=== PATIENT | male | born 1995 | race Caucasian/White ===

== ENCOUNTER → 2022-11-23 | Outpatient (CLI) | payer OTHER | LOC: M PLAIMG 14:22 | PROVIDERS: ATTEND Physician Assistant | DX: M25.531 Pain in right wrist (principal); S52.021K Displaced fracture of olecranon process without intraarticular extension of right ulna, subsequent encounter for closed fracture with nonunion ==

== ENCOUNTER 2023-08-28 06:17 | Day surgery (SDC) | payer OTHER ==
[~2023-08-28] VITALS: Ht 195.6 cm; Wt 129.3 kg
[~2023-08-28 06:17] MED LIST: ACET325C5 PO; CELE1CAP4 PO; NEUR300C PO; TIZA10TA; VITA100093 PO
[2023-08-28] MEDS ORDERED: LR 1,000 ML IV SCH ×2 (06:45→08:35)
[2023-08-28] MEDS ORDERED: ceFAZolin SOD 1 GM in D5W MINI-BAG PLUS 50 ML IV ONE (07:05)
[2023-08-28] MEDS ORDERED: ceFAZolin SOD 2 GM in IV 1 EA IV ONE (07:05)
[2023-08-28] MEDS ORDERED: fentaNYL 100 MCG/2 ML INJECTION As Ordered ONE ×2 (07:09→07:57)
[2023-08-28] MEDS ORDERED: LIDOCAINE 2% 100MG/5ML SDV (FOR ANES.) As Ordered ONE (07:09)
[2023-08-28] MEDS ORDERED: MIDAZOLAM INJ 2MG/2ML VIAL As Ordered ONE (07:09)
[2023-08-28] MEDS ORDERED: propofoL 200 MG/20 ML VIAL As Ordered ONE (07:09)
[2023-08-28] MEDS ORDERED: ONDANSETRON 4MG 2ML VIAL As Ordered ONE (07:09)
[2023-08-28] MEDS ORDERED: KETOROLAC 60MG 2ML VIAL As Ordered ONE (07:09)
[2023-08-28] MEDS ORDERED: LIDOCAINE W/EPINEPHRINE 1% 20ML VIAL As Ordered ONE (07:17)
[2023-08-28] MEDS ORDERED: GLYCOPYRROLATE INJ 0.2 MG/ML 2 ML VIAL As Ordered ONE (07:28)
[2023-08-28] MEDS ORDERED: ATROPINE SULF 0.4 MG/ML 1ML VIAL As Ordered ONE (07:32)
[2023-08-28] MEDS ORDERED: MEPERIDINE 50 MG/ML 1ML VIAL As Ordered ONE (08:30)
[2023-08-28] MEDS ORDERED: fentaNYL 100 MCG/2 ML INJECTION IV PRN (08:35)
[2023-08-28] MEDS ORDERED: HYDROMORPHONE HCL 0.5 MG/ 0.5 ML SYRINGE IV PRN (08:35)
[2023-08-28] MEDS ORDERED: ONDANSETRON 4MG 2ML VIAL IV PRN (08:35)
[2023-08-28] MEDS ORDERED: oxyCODONE 5MG TAB PO PRN (08:35)
[2023-08-28] MEDS ORDERED: PERC5TAB12 PO (08:40)
[2023-08-28] MEDS ORDERED: diphenhydrAMINE 50MG/ML VIAL IV ONE (09:35)
[2023-08-28 10:15] VITALS: BP 129/60; TEMP 97.9; O2SAT 96
== END 2023-08-28 10:27 | disposition home or self-care (01) ==
LOC: M SDC 06:17
PROVIDERS: ATTEND Orthopaedic Surgery Hand Surgery
DX: G56.21 Lesion of ulnar nerve, right upper limb (principal); Z79.899 Other long term (current) drug therapy
CPT/HCPCS: 29999; J0461; J0690; J1100; J1200; J1885; J2175; J2250; J2405; J3010

== ENCOUNTER → 2024-01-10 | Outpatient (CLI) | payer OTHER ==
[~2024-01-10] MED LIST changes: +PERC5TAB12 PO
== END ==
LOC: M RAD 12:32
PROVIDERS: ATTEND Otolaryngology
DX: J33.0 Polyp of nasal cavity (principal); J34.2 Deviated nasal septum; J32.8 Other chronic sinusitis